=== PATIENT | female | born 1950 | race Caucasian/White ===

== ENCOUNTER → 2022-02-14 | Outpatient (CLI) | payer MEDICARE, SELFPAY ==
--- NOTE | 2022-02-14 12:26 | MRI_ITS ---
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 This report was created using [employer] report Final[employer] technology. CONTRAST: 13ml Dotarem via IV COMPARISON: Prior comparison studies are not available for review at this time. FINDINGS: TENDONS: FLEXORS: Unremarkable. Intact. EXTENSORS/HAMSTRING: Unremarkable. Intact. ABDUCTORS: Unremarkable. Intact. ADDUCTORS: Unremarkable. Intact. ROTATORS: Unremarkable. Intact. MUSCLES: See below. FLUID: Unremarkable. No joint effusion. No trochanteric bursitis. LABRUM: Unremarkable. No evidence of a tear on this non-arthrogram exam. CARTILAGE: Unremarkable. Articular cartilage intact. BONES/JOINTS: Degenerative findings in the left hip. Increased STIR signal in the medial hip musculature suggesting muscular strain. Degenerative findings in the lumbar spine. No significant enhancement in the left hip. Heterogeneous areas of increased STIR signal in the left acetabulum suggesting degenerative findings. No femoral neck fracture. No avascular necrosis of the femoral head. No sacral insufficiency fracture. OTHER SOFT TISSUES: Right subcutaneous gluteal fat 22 mm nodule. MRI/Lower Ext Joint Only W/WO Cont IMPRESSION: 1. Right subcutaneous gluteal fat 22 mm nodule. 2. Degenerative findings in the left hip. 3. Increased STIR signal in the medial hip musculature suggesting muscular strain. Electronically Signed: William Cortez MD at 18:42 EDT Reading Location ID and State: [facility] / [place] , Service support ,
[2022-02-14 15:27] LABS: EGFR FINGERSTICK > 60 mL/min (>60)
== END | disposition home or self-care (01) ==
DX: C7B.1 Secondary Merkel cell carcinoma (principal)
CPT/HCPCS: 73723; A9575